=== PATIENT | female | born 1935 | race Caucasian/White ===

== ENCOUNTER 2016-12-03 03:14 | Emergency (ER) | payer MEDICARE, OTHER ==
[2016-12-03] MEDS ORDERED: GLYCERIN ADULT SUPP PR ONE (03:40)
[2016-12-03] MEDS ORDERED: GLYCERIN ADULT SUPP PR STA (03:59)
[2016-12-03] MEDS ORDERED: LIDOCAINE JELLY 2% 5 ML TUBE TOP STA (05:29)
[2016-12-03] MEDS ORDERED: LIDOCAINE JELLY 2% 5 ML TUBE TOP ONE (05:31)
== END 2016-12-03 05:41 | disposition home or self-care (01) ==
DX: K59.00 Constipation, unspecified (principal); I10 Essential (primary) hypertension; I25.10 Atherosclerotic heart disease of native coronary artery without angina pectoris; Z95.1 Presence of aortocoronary bypass graft; E78.00 Pure hypercholesterolemia, unspecified; I25.2 Old myocardial infarction; I48.91 Unspecified atrial fibrillation; K21.9 Gastro-esophageal reflux disease without esophagitis; Z86.718 Personal history of other venous thrombosis and embolism
CPT/HCPCS: 99282; 99283; A9270; J3490

== ENCOUNTER 2016-12-03 09:30 | Outpatient (CLI) | payer MEDICARE, OTHER | END 2016-12-03 09:31 | disposition home or self-care (01) | DX: Z51.5 Encounter for palliative care (principal); I50.9 Heart failure, unspecified; K59.00 Constipation, unspecified; R60.9 Edema, unspecified; R06.02 Shortness of breath; R06.82 Tachypnea, not elsewhere classified; I25.10 Atherosclerotic heart disease of native coronary artery without angina pectoris; I10 Essential (primary) hypertension; N18.3 Chronic kidney disease, stage 3 (moderate); E78.5 Hyperlipidemia, unspecified; I48.91 Unspecified atrial fibrillation; F03.90 Unspecified dementia, unspecified severity, without behavioral disturbance, psychotic disturbance, mood disturbance, and anxiety; I51.7 Cardiomegaly; R07.9 Chest pain, unspecified; R63.0 Anorexia; Z66 Do not resuscitate; R42 Dizziness and giddiness; R53.1 Weakness; L29.9 Pruritus, unspecified ==